=== PATIENT | female | born 1960 | race Caucasian/White ===

== ENCOUNTER → 2017-04-24 11:46 | Outpatient (CLI) | payer BC ==
[~2017-04-24 11:46] MED LIST: AMBIEN5 MG PO; BAYER CHEWABLE81 MG PO; BENADRYL25 MG PO; CARAFATE1 G PO; COLCRYS0.6 MG PO; CYMBALTA60 MG PO; ELIQUIS5 MG PO; FLECAINIDE ACET50 MG PO; FOLATE0.4 MG PO; HUMULIN R100 U/ML SC; JANUMET XR 1001 EACH PO; JARDIANCE25 MG PO; K-DUR20 MEQ PO; LASIX40 MG PO; LASIX80 MG PO; LEVEMIR100 U/M1 INJ; LOPID600 MG PO; MOBIC7.5 MG PO; MUCINEX1200 MG/BO PO; MULTIPLE VITAMI1 TA1 PO; NEURONTIN 300300 MG PO; OMEPRAZOLE40 MG PO; PRESERVISION AR1 CAP PO; PRINIVIL20 MG PO; SYNTHROID25 MCG PO; TOPROL XL50 MG PO; TRULICITY0.75 MG/0. SC; VITAMIN D5000 UNIT PO; ZETIA10 MG PO; ZITHROMAX250 MG PO; ZYLOPRIM300 MG PO
[2017-07-21 07:21] VITALS: BMI 47.7
== END | disposition home or self-care (01) ==
LOC: D.RAD 11:45
DX: R09.1 Pleurisy (principal)

== ENCOUNTER 2017-04-25 09:29 | Inpatient (IN) | payer BC ==
[~2017-04-25] VITALS: Ht 160 cm; Wt 118.8 kg
[2017-04-25 10:23] LABS: APPEARANCE CLEAR (CLEAR); BILIRUBIN NEGATIVE (NEGATIVE); COLOR STRAW (YELLOW); GLUCOSE 1000 mg/dL (NEGATIVE); KETONE NEGATIVE (NEGATIVE); NITRITE NEGATIVE (NEGATIVE); PROTEIN NEGATIVE (NEGATIVE); UROBILINOGEN NORMAL (NORMAL)
[2017-04-25 10:35] LABS: BASOPHILS 0.3 % (0-2); EOSINOPHILS 0.7 % (0-7); HEMATOCRIT 33.7 % (36.0-48.0); HEMOGLOBIN 11.1 g/dL (12-16); IMMATURE GRANULOCYTES 0.3 % (0-5); LYMPHOCYTES 13.2 % (15-50); MCH 31.2 pg (26.0-34.0); MCHC 32.9 g/dL (31.0-37.0); MCV 94.7 fL (80.0-100.0); MEAN PLATELET VOLUME 10.1 fL (7.4-10.4); MONOCYTES 10.8 % (2-11); NEUTROPHILS 74.7 % (40-80); PLATELET COUNT 270 10x3/uL (130-400); RBC 3.56 10x6/uL (4.00-5.40); RDW 14.1 % (11.5-14.5); WBC 11.6 10x3/uL (4.8-10.8)
[2017-04-25 10:53] LABS: ALBUMIN 3.5 g/dL (3.4-5.0); ANION GAP 16.4 mmol/L (8-16); BILIRUBIN - TOTAL 0.38 mg/dL (0.2-1.3); CALCIUM 9.6 mg/dL (8.5-10.1); CARBON DIOXIDE 23.3 mmol/L (21.0-32.0); CREATININE - SERUM 1.8 mg/dL (0.6-1.3); POTASSIUM - SERUM 3.7 mmol/L (3.5-5.1); PROTEIN - SERUM 8.4 g/dL (6.4-8.2)
[2017-04-25] MEDS ORDERED: JARDIANCE25 MG PO (13:25)
[2017-04-25] MEDS ORDERED: SYNTHROID25 MCG PO (13:25)
[2017-04-25] MEDS ORDERED: LASIX80 MG PO (13:25)
[2017-04-25] MEDS ORDERED: CARAFATE1 G PO (13:26)
[2017-04-25] MEDS ORDERED: K-DUR20 MEQ PO (13:26)
[2017-04-25] MEDS ORDERED: LOPID600 MG PO (13:26)
[2017-04-25] MEDS ORDERED: CYMBALTA60 MG PO (13:27)
[2017-04-25] MEDS ORDERED: OMEPRAZOLE40 MG PO (13:27)
[2017-04-25] MEDS ORDERED: BAYER CHEWABLE81 MG PO (13:28)
[2017-04-25] MEDS ORDERED: FLECAINIDE ACET50 MG PO (13:28)
[2017-04-25] MEDS ORDERED: MOBIC7.5 MG PO (13:28)
[2017-04-25] MEDS ORDERED: PRINIVIL20 MG PO (13:29)
[2017-04-25] MEDS ORDERED: JANUMET XR 1001 EACH PO (13:30)
[2017-04-25] MEDS ORDERED: LEVEMIR100 U/M1 INJ (13:30)
[2017-04-25] MEDS ORDERED: TOPROL XL50 MG PO (13:31)
[2017-04-25] MEDS ORDERED: VITAMIN D5000 UNIT PO (13:32)
[2017-04-25] MEDS ORDERED: AMBIEN5 MG PO (13:33)
[2017-04-25] MEDS ORDERED: NEURONTIN 300300 MG PO (13:34)
[2017-04-25] MEDS ORDERED: TRULICITY0.75 MG/0. SC (13:35)
[2017-04-25] MEDS ORDERED: MUCINEX1200 MG/BO PO (13:36)
[2017-04-25] MEDS ORDERED: PRESERVISION AR1 CAP PO (13:37)
[2017-04-25] MEDS ORDERED: MULTIPLE VITAMI1 TA1 PO (13:38)
[2017-04-25] MEDS ORDERED: BENADRYL25 MG PO (13:39)
[2017-04-25] MEDS ORDERED: ZETIA10 MG PO (13:39)
[2017-04-25] MEDS ORDERED: FOLATE0.4 MG PO (13:40)
[2017-04-25 13:43] VITALS: BP 121/60; BMI 46.5
[2017-04-25 16:26] VITALS: BP 126/58; BP 156/58
[2017-04-25] MEDS ORDERED: ZYLOPRIM300 MG PO (18:02)
[2017-04-25] MEDS ORDERED: COLCRYS0.6 MG PO (18:03)
[2017-04-25 20:00] VITALS: BP 159/74
[2017-04-26 04:00] VITALS: BP 145/70
[2017-04-26 10:51] VITALS: BP 123/66
[2017-04-26 11:48] VITALS: BMI 46.4
[2017-04-26 15:10] VITALS: BP 124/65
[2017-04-26 19:39] LABS: CKMB 0.7 U/L (0.0-3.6); CREATINE KINASE 66 UL (21-215)
[2017-04-26 19:40] LABS: TROPONIN-I < 0.017 ng/mL (0.000-0.060)
[2017-04-26 21:57] VITALS: BP 157/75
[2017-04-26 23:37] LABS: CKMB 0.9 U/L (0.0-3.6); CREATINE KINASE 67 UL (21-215)
[2017-04-26 23:38] LABS: TROPONIN-I < 0.017 ng/mL (0.000-0.060)
[2017-04-27 00:57] VITALS: BP 136/65
[2017-04-27 04:35] LABS: BASOPHILS 0.3 % (0-2); EOSINOPHILS 3.2 % (0-7); HEMOGLOBIN 9.5 g/dL (12-16); IMMATURE GRANULOCYTES 0.5 % (0-5); LYMPHOCYTES 28.8 % (15-50); MCH 30.1 pg (26.0-34.0); MCHC 31.7 g/dL (31.0-37.0); MCV 94.9 fL (80.0-100.0); MEAN PLATELET VOLUME 9.8 fL (7.4-10.4); MONOCYTES 14.8 % (2-11); NEUTROPHILS 52.4 % (40-80); PLATELET COUNT 227 10x3/uL (130-400); RBC 3.16 10x6/uL (4.00-5.40)
[2017-04-27 04:45] LABS: WBC 6.6 10x3/uL (4.8-10.8)
[2017-04-27 05:13] LABS: CALCIUM 8.7 mg/dL (8.5-10.1); CHLORIDE - SERUM 105 mmol/L (98-107); CKMB 0.8 U/L (0.0-3.6); CREATINE KINASE 58 UL (21-215); POTASSIUM - SERUM 3.7 mmol/L (3.5-5.1); SODIUM 139 mmol/L (136-145); TROPONIN-I < 0.017 ng/mL (0.000-0.060); UREA NITROGEN 33 mg/dL (7-18); eGFR NON AFRICAN AMERICAN 45 mL/min (90-120)
[2017-04-27 05:16] LABS: CALC OSMOLALITY 284 mosm/kg (275-300); CREATININE - SERUM 1.3 mg/dL (0.6-1.3); GLUCOSE 98 mg/dL (74-106)
[2017-04-27 05:45] VITALS: BP 158/74
[2017-04-27 09:00] VITALS: BP 157/70
[2017-04-27 13:13] VITALS: BP 132/56
[2017-04-27 16:58] VITALS: BP 127/54
[2017-04-27 22:08] VITALS: Ht 160 cm; Wt 118.8 kg
[2017-04-27 23:18] VITALS: BP 117/65
[2017-04-28 04:00] VITALS: BP 165/66
[2017-04-28 04:09] LABS: BASOPHILS 0.5 % (0-2); EOSINOPHILS 5.3 % (0-7); HEMATOCRIT 29.7 % (36.0-48.0); HEMOGLOBIN 9.4 g/dL (12-16); IMMATURE GRANULOCYTES 0.8 % (0-5); LYMPHOCYTES 34.8 % (15-50); MCH 30.3 pg (26.0-34.0); MCHC 31.6 g/dL (31.0-37.0); MCV 95.8 fL (80.0-100.0); MEAN PLATELET VOLUME 9.8 fL (7.4-10.4); MONOCYTES 11.4 % (2-11); NEUTROPHILS 47.2 % (40-80); RDW 14.1 % (11.5-14.5)
[2017-04-28 04:17] LABS: PLATELET COUNT 278 10x3/uL (130-400)
[2017-04-28 04:21] LABS: ALBUMIN 2.8 g/dL (3.4-5.0); ANION GAP 15.9 mmol/L (8-16); BILIRUBIN - TOTAL 0.21 mg/dL (0.2-1.3); CALCIUM 9.6 mg/dL (8.5-10.1); CREATININE - SERUM 1.3 mg/dL (0.6-1.3); POTASSIUM - SERUM 3.9 mmol/L (3.5-5.1); PROTEIN - SERUM 7.2 g/dL (6.4-8.2)
[2017-04-28 08:18] VITALS: BP 144/65
[2017-04-28 10:02] LABS: % SATURATION 19 % (15-55); IRON 60 ug/dl (35-150); TOTAL IRON BIND CAPACITY 305 ug/dl (260-445); UNSAT IRON BIND CAPACITY 245 ug/dl (150-375)
[2017-04-28 13:20] VITALS: BP 136/63
[2017-04-28 16:47] VITALS: BP 135/65
[2017-04-28 20:00] VITALS: BP 134/61
[2017-04-29 04:00] VITALS: BP 155/77
[2017-04-29 08:39] VITALS: BP 136/68
[2017-04-29 09:17] LABS: FOLATE (FOLIC ACID) - SERUM 14.5 ng/mL (>3.0)
[2017-04-29] MEDS ORDERED: ZITHROMAX250 MG PO (09:56)
[2017-04-29] MEDS ORDERED: ELIQUIS5 MG PO (09:58)
[2017-05-01 07:27] LABS: SPE - A/G RATIO 0.9 (0.7-1.7); SPE - ALBUMIN 2.9 g/dL (2.9-4.4); SPE - ALPHA-1 GLOBULIN 0.2 g/dL (0.0-0.4); SPE - ALPHA-2 GLOBULIN 1.3 g/dL (0.4-1.0); SPE - GAMMA GLOBULIN 0.6 g/dL (0.4-1.8); SPE - M-SPIKE Not Observed g/dL (Not Observed)
== END 2017-04-29 11:49 | disposition home or self-care (01) | DRG 194 ==
LOC: D.ER 09:29 → D.EDHOLD 11:20 → D.MS 11:20
PROVIDERS: Emergency Medicine; Legal Medicine
DX: J18.9 Pneumonia, unspecified organism (principal); N17.9 Acute kidney failure, unspecified; Z68.42 Body mass index [BMI] 45.0-49.9, adult; E11.9 Type 2 diabetes mellitus without complications; Z79.4 Long term (current) use of insulin; R00.0 Tachycardia, unspecified; R51 Headache; Z86.718 Personal history of other venous thrombosis and embolism; E66.01 Morbid (severe) obesity due to excess calories

== ENCOUNTER 2017-07-21 06:17 | Day surgery (SDC) | payer BC ==
[~2017-07-21] VITALS: Ht 160 cm; Wt 122.3 kg
--- NOTE | ~2017-07-21 | OP ---
PATIENT NAME: LETITIA NARAYANAN MEDICAL RECORD: [id number] :64 LOCATION:D.[facility] ADMISSION DATE: SURGEON: HUY VERNON DO DATE OF OPERATION: 07/21/2017 PROCEDURE: Colonoscopy with polypectomy. INDICATIONS FOR PROCEDURE: Hematochezia and personal history of polyps. SCOPE: Olympus video pediatric colonoscope. MEDICATIONS: Propofol 350 mg IV per anesthesia. WITHDRAWAL TIME: 18 minutes. ESTIMATED BLOOD LOSS: Minimal. COMPLICATIONS: None. FINDINGS: Informed consent was given. The patient was made comfortable with the above medication. After reaching an adequate level of sedation by slow IV push, the patient was placed on her left side. A digital rectal examination was performed and was normal. The endoscope was then advanced under direct visualization through the rectum to the cecum with visualization of the appendiceal orifice and ileocecal valve. The scope was slowly withdrawn and the mucosa was carefully examined to the best of my ability. Prep quality was inadequate due to large amounts of colon mucosa, not being able to be visualized. Aspiration of fluid was attempted, but there were too many solid components of the stool that prevented removal of the fluid and stool. Of what could be seen, there was an ascending colon polyp, which measured approximately 3-4 mm in diameter. It was removed using hot forceps in 1 piece and completely retrieved. There were no other polyps visualized on today's examination. There were no diverticula seen. Retroflexion was performed in the rectum with visualization of grade I internal hemorrhoids without active bleeding. The endoscope was then withdrawn from the patient. The patient tolerated the procedure well and there were no complications. IMPRESSION: 1. Single ascending colon polyp removed using a hot forceps. 2. Grade I internal hemorrhoids without active bleeding. 3. Inadequate prep. PLAN AND RECOMMENDATIONS: 1. Discharge home when recovery parameters are met. 2. Follow up biopsy specimen results. 3. High fiber diet. 4. Continue current medications. 5. Proceed with EGD as scheduled. 6. Recommend a repeat colonoscopy within 6 months due to the inadequate prep encountered on today's examination. TRANSINT:[id number] Voice Confirmation ID: [id number] DOCUMENT ID: [id number] OPERATIVE REPORT [id number] LETITIA NARAYANAN HUY VERNON DO at 8747 CC: [id number] DICTATION DATE: 07/21/17 0898 BAG MACHINE OPERATOR HELPER: 07/21/17 1156 [facility] 07/21/17 [facility] [address] [place] [address]
[~2017-07-21 06:17] MED LIST changes: -HUMULIN R100 U/ML SC; -LASIX40 MG PO
[2017-07-21] MEDS ORDERED: LASIX40 MG PO (07:08)
[2017-07-21] MEDS ORDERED: HUMULIN R100 U/ML SC (07:10)
[2017-07-21 07:21] VITALS: BP 156/77; Ht 160 cm; Wt 122.3 kg
[2017-07-21 07:30] LABS: HEMATOCRIT 34.7 % (36.0-48.0); HEMOGLOBIN 11.3 g/dL (12-16); MCH 30.4 pg (26.0-34.0); MCHC 32.6 g/dL (31.0-37.0); MCV 93.3 fL (80.0-100.0); MEAN PLATELET VOLUME 10.8 fL (7.4-10.4); RBC 3.72 10x6/uL (4.00-5.40); RDW 13.5 % (11.5-14.5); WBC 6.9 10x3/uL (4.8-10.8)
[2017-07-21 07:58] LABS: ANION GAP 18.5 mmol/L (8-16); CALCIUM 9.8 mg/dL (8.5-10.1); CARBON DIOXIDE 23.6 mmol/L (21.0-32.0); CREATININE - SERUM 1.1 mg/dL (0.6-1.3); POTASSIUM - SERUM 4.1 mmol/L (3.5-5.1)
== END 2017-07-21 09:29 | disposition home or self-care (01) ==
LOC: D.OPS 06:17
PROVIDERS: Anesthesiology
DX: D12.2 Benign neoplasm of ascending colon (principal); K64.0 First degree hemorrhoids; Z86.010 Personal history of colon polyps; Z01.812 Encounter for preprocedural laboratory examination

== ENCOUNTER → 2017-08-19 11:51 | Outpatient (CLI) | payer BC ==
[2017-07-21 07:21] VITALS: BMI 47.7
[~2017-08-19 11:51] MED LIST changes: +HUMULIN R100 U/ML SC; +LASIX40 MG PO
== END | disposition home or self-care (01) ==
LOC: D.NM 11:51 → D.US 15:00
DX: M79.621 Pain in right upper arm (principal); R60.0 Localized edema; R06.02 Shortness of breath

== ENCOUNTER 2017-08-25 05:37 | Day surgery (SDC) | payer BC ==
[~2017-08-25] VITALS: Ht 160 cm; Wt 120.5 kg
--- NOTE | ~2017-08-25 | OP ---
PATIENT NAME: LETITIA NARAYANAN MEDICAL RECORD: [id number] :64 LOCATION:[facility] ADMISSION DATE: SURGEON: HUY VERNON DO DATE OF OPERATION: 08/25/2017 PROCEDURE: EGD with biopsies. INDICATION FOR PROCEDURE: Epigastric pain, melena, nausea, heartburn. SCOPE: Olympus video gastroscope. MEDICATIONS: Propofol 350 mg IV per anesthesia. ESTIMATED BLOOD LOSS: Minimal. COMPLICATIONS: None. FINDINGS: Informed consent was given. The patient was made comfortable with the above medications. After reaching an adequate level of sedation by slow IV push, the patient was placed on her left side. The endoscope was advanced under direct visualization through the mouth to the second portion of the duodenum. The upper, middle, and lower thirds of the esophagus appeared normal. At the GE junction, there was evidence of LA class C reflux-induced esophagitis and possible Mccoy's mucosa with a few squamous islands noted. A few cold forceps biopsies were taken to submit for histopathology. The endoscope was advanced beyond the GE junction into the stomach, where a large amount of retained food was seen. Retroflexion was performed with a normal-appearing cardia and fundus. Approximately 10% of the gastric mucosa was visualized and this was mainly in the antrum and the prepyloric region. The mucosa appeared normal without ulcers or erosions. Random cold forceps biopsies were taken to submit for histology and to rule out H. pylori. The endoscope was advanced beyond the pylorus into the duodenum. The duodenal bulb and second portion of the duodenum appeared normal. The endoscope was then withdrawn back into the stomach, where again a large amount of food was visualized. There was no bleeding or signs of recent bleeding. The endoscope was withdrawn from the patient. The patient tolerated the procedure well and there were no complications. IMPRESSION: 1. LA class C reflux-induced esophagitis and possible Mccoy's mucosa at the GE junction. This would be a short segment of Mccoy's if this is positive. Biopsies were taken. 2. Significant amount of food retention was noted within the stomach. PLAN AND RECOMMENDATIONS: 1. Discharge home when recovery parameters are met. 2. Followup biopsy specimen results and treat for H. pylori if indicated. 3. Gastric emptying scan regarding retained food. 4. Whether or not this is positive, a trial of Reglan may still be considered based on clinical symptoms and findings on endoscopy today. TRANSINT:[id number] Voice Confirmation ID: [id number] DOCUMENT ID: [id number] OPERATIVE REPORT [id number] LETITIA NARAYANAN,HUY Mcgrath DO at 1255 CC: [id number] DICTATION DATE: 08/25/17 0803 TV NEWS DIRECTOR: 08/25/17 1202 [facility] 08/25/17 [place] [id number] [place] [id number]
[2017-08-25 06:17] LABS: BASOPHILS 1.1 % (0-2); EOSINOPHILS 7.2 % (0-7); HEMATOCRIT 34.5 % (36.0-48.0); HEMOGLOBIN 10.8 g/dL (12-16); IMMATURE GRANULOCYTES 0.2 % (0-5); MCHC 31.3 g/dL (31.0-37.0); MCV 95.8 fL (80.0-100.0); MEAN PLATELET VOLUME 10.5 fL (7.4-10.4); MONOCYTES 11.2 % (2-11); NEUTROPHILS 39.3 % (40-80); PLATELET COUNT 241 10x3/uL (130-400); RDW 14.8 % (11.5-14.5); WBC 6.4 10x3/uL (4.8-10.8)
[2017-08-25 06:25] LABS: ANION GAP 13.2 mmol/L (8-16); CALCIUM 9.4 mg/dL (8.5-10.1); CARBON DIOXIDE 27.1 mmol/L (21.0-32.0); CREATININE - SERUM 1.5 mg/dL (0.6-1.3); POTASSIUM - SERUM 4.3 mmol/L (3.5-5.1)
[2017-08-25 06:46] VITALS: BP 123/63; Ht 160 cm; Wt 120.5 kg
== END 2017-08-25 09:27 | disposition home or self-care (01) ==
LOC: D.OPS 05:37
PROVIDERS: Anesthesiology
DX: K21.0 Gastro-esophageal reflux disease with esophagitis (principal); K29.50 Unspecified chronic gastritis without bleeding; Z01.812 Encounter for preprocedural laboratory examination

== ENCOUNTER → 2017-09-08 08:17 | Outpatient (CLI) | payer BC ==
[2017-08-25 06:46] VITALS: BMI 47.0
== END | disposition home or self-care (01) ==
LOC: D.US 06-30 08:00 → D.NM 08:30
DX: I12.9 Hypertensive chronic kidney disease with stage 1 through stage 4 chronic kidney disease, or unspecified chronic kidney disease (principal); N18.4 Chronic kidney disease, stage 4 (severe); E11.22 Type 2 diabetes mellitus with diabetic chronic kidney disease; Z68.42 Body mass index [BMI] 45.0-49.9, adult; R10.13 Epigastric pain; R11.0 Nausea

== ENCOUNTER → 2018-07-09 19:06 | Outpatient (CLI) | payer OTHER ==
[2017-08-25 06:46] VITALS: BMI 47.0
[2018-07-09 20:35] LABS: CALCIUM 9.1 mg/dL (8.5-10.1); CREATININE - SERUM 1.2 mg/dL (0.6-1.3)
== END | disposition home or self-care (01) ==
LOC: D.LABREF 19:06
PROVIDERS: ATTEND Internal Medicine Cardiovascular Disease
DX: R60.0 Localized edema (principal)

== ENCOUNTER → 2018-07-21 13:39 | Outpatient (CLI) | payer OTHER ==
[2017-08-25 06:46] VITALS: BMI 47.0
== END | disposition home or self-care (01) ==
LOC: D.HCCARDIO 13:30
PROVIDERS: ATTEND Internal Medicine Cardiovascular Disease
DX: R00.2 Palpitations (principal)

== ENCOUNTER → 2019-08-13 07:03 | Outpatient (CLI) | payer BC, OTHER ==
[2017-08-25 06:46] VITALS: BMI 47.0
--- NOTE | ~2019-08-13 | HEMODYNAMI ---
PATIENT:LETITIA NARAYANAN MEDICAL RECORD: [id number] : 64 LOCATION:[facility] ADMISSION DATE: 08/13/19 Generatedon:08/13/20199:08 Patient name: LETITIA NARAYANAN Patient #: [id number] SSN: : 1960 Date of study: 08/13/2019 Page: Of Hemodynamic Procedure Report Patient Data Patient Demographics Procedure consent was obtained First Name: LETITIA Gender: Female Last Name: ORACIO : 1960 Middle Initial: JERARDO Age: 59 year(s) Patient #: [id number] Race: Unknown Additional ID: [id number] Contact details Address: [address] State: [place] City: [place] Zip code: [address] Admission Admission Data Admission Date: 08/13/2019 Admission Time: 7:03 Procedure Procedure Types Cath Procedure Peripheral Cath Diagnostic Procedure Venography Extremity Bilat Venogram Lower Ext Inject Venography Extremity Procedure Description Procedure Date Procedure Date: 08/13/2019 Procedure Start Time: 8:45 Procedure Staff Name Function Pedro Shelton MD Performing Physician Shine Leung RT Monitor Kati Jacobs RN Nurse Adrienne Lo RT Scrub Procedure Data Cath Procedure Fluoroscopy Diagnostic fluoroscopy Total fluoroscopy Time: 2.1 time: 2.1 min min Diagnostic fluoroscopy Total fluoroscopy dose: 20 dose: 20 mGy mGy Contrast Material Contrast Material Type Amount (ml) Isovue 300 100 Hemodynamics Rest Pre Cath Intra NCS Post Cath Procedure Log Time Note 8:29:41 Shine Leung RT (R) (CV) sent for patient. Start room use. 8:29:47 Time tracking: Regular hours (M-F 7:00 - 5:00) 8:30:13 Patient received from Outpatients to IR Alert and oriented. Tansferred to table in Supine position. 8:30:16 Signed procedure consent form obtained from patient. 8:30:17 Correct patient and procedure confirmed by team. 8:30:18 Full Disclosure recording started 8:30:19 8:30:20 Pre-procedure instructions explained to patient. 8:30:21 Pre-op teaching completed and patient verbalized understanding. 8:30:23 Patient NPO since Midnight. 8:30:27 Is patient on blood thinner?Yes 8:30:31 ACC The patient was administered the following blood thiners within the last 24 hours: ACCLovenox 8:30:33 Patient diabetic? Yes. 8:30:45 If diabetic: On Metformin? No 8:44:42 --------ALL STOP TIME OUT------ 8:44:43 Final Timeout: patient, procedure, and site verified with staff and physician. All members of the team are in agreement. 8:44:52 Sedation plan: None 8:45:13 Procedure started. 8:55:29 venogram on rt leg performed. 8:59:47 venogram on Lt leg performed. 9:07:02 Procedure ended.(Physican Out) 9:07:14 Fluoroscopy time 02.10 minutes. 9:07:21 Fluoroscopy dose: 20 mGy 9:07:21 Flurop Dose total: 20 9:07:39 Contrast amount:Isovue 300 100ml. 9:07:43 Procedure and supply charges have been captured, reviewed, submitted and are correct. Signature Audit [place] Stage Time Signature Unsigned Intra-Procedure 08/13/2019 Adrienne Lo 9:08:45 AM RT(R) [facility] [address] [place] [address]
[2019-08-13 07:25] LABS: BASOPHILS 1.4 % (0-2); EOSINOPHILS 7.7 % (0-7); HEMATOCRIT 34.3 % (36.0-48.0); HEMOGLOBIN 11.1 g/dL (12-16); IMMATURE GRANULOCYTES 0.3 % (0-5); LYMPHOCYTES 33.8 % (15-50); MCH 30.5 pg (26.0-34.0); MCHC 32.4 g/dL (31.0-37.0); MCV 94.2 fL (80.0-100.0); MEAN PLATELET VOLUME 9.3 fL (7.4-10.4); MONOCYTES 9.6 % (2-11); NEUTROPHILS 47.2 % (40-80); PLATELET COUNT 257 10x3/uL (130-400); RBC 3.64 10x6/uL (4.00-5.40); RDW 13.6 % (11.5-14.5); WBC 6.2 10x3/uL (4.8-10.8)
[2019-08-13 07:40] LABS: CALCIUM 9.5 mg/dL (8.5-10.1); CREATININE - SERUM 1.2 mg/dL (0.6-1.3)
[2019-08-13 07:55] LABS: APTT 26.8 SECONDS (22.8-39.4); INR 0.82 (0.85-1.17); PROTIME 11.3 SECONDS (11.6-15.0)
== END | disposition home or self-care (01) ==
LOC: D.RAD 07-26 09:00 → D.SP 07-26 09:00 → D.RAD 07-26 10:00 → D.SP 07:03
PROVIDERS: Radiology Diagnostic Radiology; ATTEND Internal Medicine Hematology & Oncology
DX: Z13.79 Encounter for other screening for genetic and chromosomal anomalies (principal); I82.409 Acute embolism and thrombosis of unspecified deep veins of unspecified lower extremity; I10 Essential (primary) hypertension; E11.9 Type 2 diabetes mellitus without complications; Z79.4 Long term (current) use of insulin

== ENCOUNTER 2019-08-27 11:32 | Outpatient (CLI) | payer BC, OTHER ==
[~2019-08-27] VITALS: Ht 160 cm; Wt 122.3 kg
--- NOTE | ~2019-08-27 | HEMODYNAMI ---
PATIENT:LETITIA NARAYANAN MEDICAL RECORD: [id number] : 64 [facility] AD[facility]ION DATE: 08/27/19 Generatedon:08/27/201914:32 Patient name: LETITIA NARAYANAN Patient #: [id number] SSN: D OB: 1960 Date of study: 08/27/2019 Page: Of Hemodynamic Procedure Report Patient Data Patient Demographics Procedure consent was obtained First Name: LETITIA Gender: Female Last Name: ORACIO : 1960 Middle Initial: JERARDO Age: 59 year(s) Patient #: [id number] Race: Unknown Additional ID: [id number] Contact details Address: [address] State: [place] City: [place] Zip code: [address] Past Medical History Allergies Allergen Reaction Date Comments Reported Penicillins 08/27/2019 Sulfa drugs 08/27/2019 Demerol 08/27/2019 Other 08/27/2019 dramanine,valuim,allee-chlor allergy decongestant Admission Admission Data Admission Date: 08/27/2019 Admission Time: 11:32 Height (in.): 63 BSA: 2.19 (m2) Height (cm.): 160.02 BMI: 47.65 (kg/m2) Weight (lbs.): 269 Weight (kg.): 122.02 Procedure Procedure Types Cath Procedure Peripheral Cath Diagnostic Procedure Corsets Salesperson Peripheral Procedures Venography Extremity Left Lower Ext. Venagram Procedure Description Procedure Date Procedure Date: 08/27/2019 Procedure Start Time: 14:01 Procedure Staff Name Function Pedro Shelton MD Performing Physician Adrienne Lo RT Medical Imaging Specialist Ricky BEAVERS RN Nurse Kati Jacobs RN Nurse Shine Leung RT Scrub Procedure Data Cath Procedure Fluoroscopy Diagnostic fluoroscopy Total fluoroscopy Time: 2 time: 2 min min Diagnostic fluoroscopy Total fluoroscopy dose: 632 dose: 632 mGy mGy Contrast Material Contrast Material Type Amount (ml) Isovue 300 55 Diagnostic catheters Device Type Used For End Catheter Placement Merit Impress KA2 5Fr 65CM catheter ([id number]) Procedure Medications Medication Administration Route Dosage Refer to Anesthesia Notes for Sedation Medications Hemodynamics Rest BSA: 2.19 (m2) O2 Consumption: Estimated: 220.67 (ml/min) O2 Consumption indexed : Estimated:100.76 (ml/min/m) Heart Rate: 83 (bpm) Snapshots Pre Cath Intra NCS Post Cath Vital Signs Time Heart Resp SPO2 etCO2 NIBP (mmHg) Rhythm Pain Sedation Rate (ipm) (%) (mmHg) Status Level (bpm) 13:55:12 84 17 98 33.8 145/74(103) NSR 0 (11) 10(A) , No pain 13:59:34 84 15 98 41.4 132/67(101) NSR 0 (11) 10(A) , No pain 14:03:50 87 15 97 42.8 125/61(93) NSR 0 (11) 10(A) , No pain 14:08:02 86 14 97 46.5 125/58(89) NSR 0 (11) 10(A) , No pain 14:12:14 87 13 97 48.8 121/60(87) NSR 0 (11) 10(A) , No pain 14:16:28 86 13 96 49.6 116/60(85) NSR 0 (11) 10(A) , No pain 14:20:40 86 14 96 49.6 121/64(89) NSR 0 (11) 10(A) , No pain 14:24:54 86 13 96 49.6 121/58(84) NSR 0 (11) 10(A) , No pain 14:29:08 86 13 98 34.6 119/63(82) NSR 0 (11) 10(A) , No pain Medications Time Medication Route Dose Delivered Reason Notes Effectiveness by 14:06:33 Refer to Anesthesia Notes for Sedation Medications Procedure Log Time Note 13:14:08 Use device set IR Diagnostic 13:43:26 Micropuncture VSI 4FR kit opened to sterile field. 13:43:28 BENTSON 145cm wire ([id number]) opened to sterile field. 13:43:28 Tegaderm 4 x 4 (1626W) opened to sterile field. 13:43:29 Sterile Angiographic Pack opened to sterile field. 13:43:30 Bag Decanter () opened to sterile field. 13:43:47 - 13:43:50 Time tracking: Regular hours (M-F 7:00 - 5:00) 13:44:11 Plan of Care:Hemodynamics will remain stable., Cardiac rhythm will remain stable., Comfort level will be maintained., Respiratory function will remain adequate., Patient/ family verbilizes understanding of procedure., Procedure tolerated without complication., Recovers from procedure without complications.. 13:44:19 Patient received from Outpatients to IR Alert and oriented. Tansferred to table in Prone position. 13:44:25 Signed procedure consent form obtained from patient. 13:44:33 H&P Date Dictated: 08/27/2019 Within 30 days and on chart., H&P Addendum completed by physician on day of procedure. (MUST COMPLETE FOR ALL OUTPATIENTS). 13:44:35 Pre-procedure instructions explained to patient. 13:44:35 Pre-op teaching completed and patient verbalized understanding. 13:44:38 Family unavailable. 13:44:42 Patient NPO since Midnight. 13:44:59 Patient allergic to Penicillins 13:45:08 Patient allergic to Sulfa drugs 13:47:22 Patient allergic to Demerol 13:48:14 Patient allergic to Other allergydramanine,valuim,allee-chlor decongestant 13:48:23 Is the patient allergic to Iodine/contrast media? No. 13:48:46 Patient diabetic? Yes. 13:48:50 If diabetic: On Metformin? No 13:48:58 - 13:49:04 ----Pre-sedation anethsthesia assessment.----see anesthesia notes for monitoring of patient during procedure 13:49:11 Previous problem with sedation/anesthesia? No ? 13:49:56 - 13:50:17 Popliteal region area was prepped with chlora-prep and draped in steril e fashion 13:50:51 Patient Height : 63 inches 13:50:57 Patient Weight : 269 lbs 13:51:01 - 13:51:11 Fire Safety Assessment: A--An alcohol-based skin anteseptic being used preoperatively., C--Open oxygen or nitrous oxide is being used. 13:52:38 3a) 45-59 Moderately reduced kidney function. 13:54:02 ECG and BP/O2 sat monitors applied to patient. 13:54:03 Vital chart was started 13:54:04 Baseline sample Acquired. 13:54:06 Full Disclosure recording started 13:54:07 - 14:00:42 GLIDE WIRE ANGLE 180cm ([id number]) opened to sterile field. 14:00:46 A Raspberry Pi Foundation KA2 5Fr 65CM catheter ([id number]) was advanced over the wire and used for . 14:00:47 SHEATH 6FR Brite Tip 35cm ([id number]) opened to sterile field. 14:00:53 Physician arrived 14:00:54 --------ALL STOP TIME OUT------ 14:00:54 Final Timeout: patient, procedure, and site verified with staff and physician. All members of the team are in agreement. 14:01:37 Procedure started. 14:01:45 Local anesthetic to right popliteal vein with Lidocaine 1% by Pedro Shelton MD.INITIAL ACCESS ONLY 14:06:33 Refer to Anesthesia Notes for Sedation Medications was administered by ; ; Verbal order read back and verified. 14:18:08 INFLATOR BasixTOUCH (LR3862) opened to sterile field. 14:18:58 Inflate balloon Inflation number: 1 A Evercross 8 x 4 x 135 Balloon ([id number]) was prepped and advanced across the Undefined1 , then inflated . 14:20:05 ROADRUNNER .035 260 glide wire ([id number]) opened to sterile field. 14:23:23 Procedure ended.(Physican Out) 14:23:37 Fluoroscopy time 02.00 minutes. 14:23:43 Fluoroscopy dose: 632 mGy 14:23:43 Flurop Dose total: 632 14:23:56 Contrast amount:Isovue 300 55ml. 14:24:45 Procedure and supply charges have been captured, reviewed, submitted an d are correct. 14:29:15 Report given to Outpatients. 14:32:09 Vital chart was stopped Intervention Summary Intervention Notes Time ActionType Lesion and Equipment Used Action# Pressure Duration Attributes 14:18:58 Inflate Undefined1 Evercross 8 x 4 1 0 00:00 balloon x 135 Balloon ([id number]) Device Usage Item Name Manufacture Quantity Catalog Number Hospital Part Current M inimal Lot# / Charge Number Stock Stock Serial# Code Micropuncture VSI VASCULAR 1 [id number] [id number] 804203 5 VSI 4FR kit SOLUTIONS BENTSON 145cm Cook [employer] 1 [id number] [id number] 151456 5 wire ([id number]) Tegaderm 4 x 4 3M 1 1626W 022547 669010 530478 5 (1626W) Sterile Cardinal 1 [id number] 929419 386064 5 Angiographic Health Pack Bag Decanter Microtek 1 2001S 260967 61518 430833 5 () Medical Inc. GLIDE WIRE Terumo 1 [id number] 098438 715671 701537 5 ANGLE 180cm (BZ9605) Merit Impress Merit 1 [id number] 320375 022415 5 KA2 5Fr 65CM Medical catheter ([id number]) SHEATH 6FR Cardinal 1 [id number] 375459 573382 365241 1 Brite Tip 35cm Health (373471T) INFLATOR Merit 1 [id number] 962815 801866 295607 5 BasixPlayRaven Medical (WF4917) Evercross 8 x 4 Medtronic 1 [id number] 601964 024295 368046 5 x 135 Balloon ([id number]) ROADRUNNER .035 [employer] Medical 1 [id number] 399395 790788 637113 5 260 glide wire (Z58115) Signature Audit [place] Stage Time Signature Unsigned Intra-Procedure 08/27/2019 Adrienne Lo 2:32:05 PM RT(R) [place] [id number] [place] [address]
[2019-08-27 12:15] LABS: HEMATOCRIT 37.7 % (36.0-48.0); HEMOGLOBIN 12.4 g/dL (12-16); LYMPHOCYTES 31.4 % (15-50); MCH 30.4 pg (26.0-34.0); MCHC 32.9 g/dL (31.0-37.0); MCV 92.4 fL (80.0-100.0); MEAN PLATELET VOLUME 9.9 fL (7.4-10.4); NEUTROPHILS 52.1 % (40-80); PLATELET COUNT 300 10x3/uL (130-400); RBC 4.08 10x6/uL (4.00-5.40); RDW 12.8 % (11.5-14.5); WBC 6.5 10x3/uL (4.8-10.8)
[2019-08-27 12:19] LABS: ANION GAP 12.6 mmol/L (8-16); CARBON DIOXIDE 26.7 mmol/L (21.0-32.0); CREATININE - SERUM 1.2 mg/dL (0.6-1.3); POTASSIUM - SERUM 4.3 mmol/L (3.5-5.1)
[2019-08-27 12:22] LABS: INR 0.86 (0.85-1.17); PROTIME 11.7 SECONDS (11.6-15.0)
[2019-08-27] MEDS ORDERED: MAG-OX 400 MG400 MG PO (13:15)
[2019-08-27] MEDS ORDERED: CINNAMON500 MG PO (13:15)
[2019-08-27] MEDS ORDERED: CO Q-10200 MG PO (13:16)
[2019-08-27 13:18] VITALS: Ht 160 cm; Wt 122.3 kg
--- NOTE | 2019-08-27 17:17 | NUR ---
1443 VITAL SIGNS ARE BEING RECORDED ON POST PROCEDURE FORM AND PART OF THE PAPER CHART. 1645 IV DC'D. CATHETER TIP INTACT. NO BLEEDING AT SITE AFTER HOLDING PRESSURE. BANDAID APPLIED. DISCHARGE INSTRUCTIONS REVIEWED WITH PT WHO VOICES UNDERSTANDING OF INSTRUCTIONS. PT HAS DONE WELL WITHOUT COMPLICATIONS SINCE RETURNING FROM RADIOLOGY. LEFT POPLITEAL DRESSING IS CDI. NO HEMATOMA AT SITE. PT HAS ICE PACK TO TAKE HOME TO USE NEEDED. PULSES STRONG IN FEET. PT STATES SHE HAS SENSATION IN LEFT FOOT SINCE PROCEDURE WAS DONE. PAIN LEVEL IS A 3 IN LEFT LEG AFTER GETTING TYLENOL EARLIER FOR A PAIN LEVEL OF 6 OUT OF 10.
== END 2019-08-27 17:09 | disposition home or self-care (01) ==
LOC: D.SP 11:32
PROVIDERS: Radiology Diagnostic Radiology; ATTEND Internal Medicine Hematology & Oncology
DX: I82.503 Chronic embolism and thrombosis of unspecified deep veins of lower extremity, bilateral (principal); I10 Essential (primary) hypertension; E83.52 Hypercalcemia; D68.61 Antiphospholipid syndrome; E10.9 Type 1 diabetes mellitus without complications; R07.89 Other chest pain; R06.00 Dyspnea, unspecified

== ENCOUNTER 2019-10-14 05:04 | Day surgery (SDC) | payer BC, OTHER ==
[~2019-10-14] VITALS: Ht 160 cm; Wt 122.9 kg
--- NOTE | ~2019-10-14 | OP ---
PATIENT NAME: LETITIA NARAYANAN MEDICAL RECORD: [id number] :64 LOCATION:D.[facility] ADMISSION DATE: SURGEON: SHREYAS JUAREZ MD DATE OF OPERATION: 10/14/2019 PREOPERATIVE DIAGNOSES: 1. Right lower quadrant soft tissue mass. 2. Diabetes mellitus. 3. MTHFR genetic mutation. 4. Hypertension. 5. Morbid obesity. 6. GERD. 7. Hyperlipidemia. 8. Obstructive sleep apnea. POSTOPERATIVE DIAGNOSES: 1. Right lower quadrant soft tissue mass. 2. Diabetes mellitus. 3. MTHFR genetic mutation. 4. Hypertension. 5. Morbid obesity. 6. GERD. 7. Hyperlipidemia. 8. Obstructive sleep apnea. PROCEDURE: Excision of 4.5 cm right lower quadrant subcutaneous soft tissue mass. SURGEON: Shreyas Juarez MD REPORT OF PROCEDURE: The patient's right lower quadrant was prepped and draped in sterile fashion. An oblique incision was made over this mass. Using electrocautery, came through the subcutaneous tissues and came around this large firm mass. The mass was completely excised and it did not extend down to the fascia. It was just surrounded by normal appearing fatty tissue. Once the mass was completely excised, it was measured out to be 4.5 x 3 cm in size. The mass was sent off for permanent specimen. We irrigated out the wound bed and any bleeding was treated with electrocautery. The subcutaneous tissues were reapproximated with interrupted 3-0 Vicryls and the skin was closed with running subcutaneous 5-0 Monocryl. A 10 mL of 0.25% Marcaine with epinephrine was infused into the surrounding tissues. The wound was dressed appropriately. COMPLICATIONS: None. CONDITION: Stable. ANESTHESIA: General endotracheal and local. BLOOD LOSS: Minimal. TRANSINT:[id number] Voice Confirmation ID: [id number] DOCUMENT ID: [id number] cc: Azael Yancey APRN OPERATIVE REPORT [id number] LETITIA NARAYANAN SHREYAS CHAVIRA MD CC: AZAEL YANCEY APRN [phone] DICTATION DATE: 10/14/1935 MULTIPLE WIRE SAWYER: 10/14/19 1143 [facility] 10/14/19 [place] [address] [place] [address]
[~2019-10-14 05:04] MED LIST changes: +CINNAMON500 MG PO; +CO Q-10200 MG PO; +FLUTICASONE PRO16 GM NASAL; +HYDROXYCHLOROQ200 MG PO; +LEVEMIR IN100 UNITS/ SC; +LOVENOX60 MG/0.6 SC; +MAG-OX 400 MG400 MG PO; +MERIBIN5 MG PO; -MUCINEX1200 MG/BO PO; +MUCINEX600 MG PO; +PROBIOTIC250 MG PO; +TYLENOL ARTHRI650 MG PO; +ZANAFLEX4 MG PO; +ZYRTEC10 MG PO
[2019-10-14 05:40] LABS: BASOPHILS 0.8 % (0-2); HEMOGLOBIN 11.4 g/dL (12-16); IMMATURE GRANULOCYTES 0.3 % (0-5); LYMPHOCYTES 36.6 % (15-50); MCH 29.5 pg (26.0-34.0); MCHC 31.7 g/dL (31.0-37.0); MEAN PLATELET VOLUME 9.5 fL (7.4-10.4); MONOCYTES 7.9 % (2-11); NEUTROPHILS 48.4 % (40-80); PLATELET COUNT 260 10x3/uL (130-400); RBC 3.87 10x6/uL (4.00-5.40); RDW 13.2 % (11.5-14.5); WBC 7.3 10x3/uL (4.8-10.8)
[2019-10-14 06:00] LABS: ANION GAP 10.4 mmol/L (8-16); CALCIUM 9.7 mg/dL (8.5-10.1); CARBON DIOXIDE 29.7 mmol/L (21.0-32.0); CREATININE - SERUM 1.2 mg/dL (0.6-1.3); POTASSIUM - SERUM 4.1 mmol/L (3.5-5.1)
[2019-10-14 06:20] VITALS: BP 155/74; Ht 160 cm; Wt 122.9 kg
[2019-10-14 06:41] LABS: APTT 34.1 SECONDS (22.8-39.4); INR 0.91 (0.85-1.17); PROTIME 12.2 SECONDS (11.6-15.0)
[2019-10-14] MEDS ORDERED: HYDROCODON-ACE1 EA10 PO (08:30)
--- NOTE | 2019-10-14 10:02 | NUR ---
0950-RECD TO ROOM FROM PACU. ALERT. RESP WITH EASE.
--- NOTE | 2019-10-14 12:11 | NUR ---
1100 IV REMOVED AND PRESSURE HELD. INSTRUCTIONS GIVEN
== END 2019-10-14 11:10 | disposition home or self-care (01) ==
LOC: D.OPS 05:04
PROVIDERS: ATTEND Surgery
DX: R19.03 Right lower quadrant abdominal swelling, mass and lump (principal); E11.9 Type 2 diabetes mellitus without complications; I10 Essential (primary) hypertension; E66.01 Morbid (severe) obesity due to excess calories; E72.12 Methylenetetrahydrofolate reductase deficiency; K21.9 Gastro-esophageal reflux disease without esophagitis; E78.5 Hyperlipidemia, unspecified; G47.33 Obstructive sleep apnea (adult) (pediatric); Z68.41 Body mass index [BMI] 40.0-44.9, adult; R89.8 Other abnormal findings in specimens from other organs, systems and tissues; D48.1 Neoplasm of uncertain behavior of connective and other soft tissue; Z79.4 Long term (current) use of insulin